=== PATIENT | female | born 1980 | race Caucasian/White ===

== ENCOUNTER 2018-03-20 07:32 | Outpatient (CLI) | payer OTHER | END 2018-03-20 07:33 | disposition home or self-care (01) | LOC: BICULT 07:32 | PROVIDERS: ATTEND Family Medicine | DX: R10.2 Pelvic and perineal pain (principal); N83.202 Unspecified ovarian cyst, left side; Z90.710 Acquired absence of both cervix and uterus | CPT/HCPCS: 76856 ==

== ENCOUNTER 2018-07-03 09:31 | Outpatient (CLI) | payer OTHER ==
--- NOTE | 2018-07-03 13:00 | ULT ---
PELVIC ULTRASOUND: Date: 07/03/18 COMPARISON: 03/20/18. HISTORY: Left ovarian cyst. TECHNIQUE: Multiplanar Barnhart scale and color Doppler images were obtained in a transabdominal and transvaginal pe lvic ultrasound. Spectral analysis of the Doppler waveforms of the ovaries were performed. FINDINGS: The uterus has been removed. No free fluid is seen in the pelvis. Both ovaries were visualized and costello ve normal internal flow. No significant cyst or follicle is seen in the left ovary. Dominant follicle is seen in the right ovary measuring 12.0 mm in greatest dimension. IMPRESSION: No significant abnormality. POS: ROHIT
== END 2018-07-03 09:32 | disposition home or self-care (01) ==
LOC: BICULT 09:31
PROVIDERS: ATTEND Family Medicine
DX: N83.202 Unspecified ovarian cyst, left side (principal); N83.01 Follicular cyst of right ovary; Z90.710 Acquired absence of both cervix and uterus
CPT/HCPCS: 76856